=== PATIENT | male | born 1980 | race Caucasian/White ===

== ENCOUNTER → 2017-11-04 | Outpatient (CLI) | payer BC ==
--- NOTE | 2017-11-04 08:44 | Diagnostic Imaging Report ---
INDICATION: Numbness and tingling in the right arm. Time of exam: 8:43 AM Curvature and alignment of the thoracic spine is normal. Vertebral body heights are well-maintained. No acute compression fracture seen. There is mild generalized degenerative disc disease present. The pedicles and paraspinous line are intact. IMPRESSION: Mild thoracic spondylosis. No acute bony abnormality is detected. Dictated by: Dictated on workstation # [id number]
--- NOTE | 2017-11-04 09:06 | Diagnostic Imaging Report ---
INDICATION: Right arm pain and tingling. TIME OF EXAMINATION: 08:41 a.m. FINDINGS: Three views of the cervical spine are obtained. There is some straightening of the normal cervical lordotic curvature. There may be very slight anterolisthesis of C4 on C5. There is degenerative disc disease at the C4-C5 and C5-C6 levels with disc space narrowing and marginal spurring. All other levels are unremarkable. The prevertebral tissues are normal. Odontoid is intact. There are no fractures. IMPRESSION: Cervical spondylosis. No acute bony abnormality is detected. Dictated by: Dictated on workstation # [id number]
== END ==
LOC: RAD 07:44
PROVIDERS: ATTEND Family Medicine
DX: M47.812 Spondylosis without myelopathy or radiculopathy, cervical region (principal); M47.814 Spondylosis without myelopathy or radiculopathy, thoracic region
CPT/HCPCS: 72040; 72072

== ENCOUNTER 2019-01-06 10:45 | Inpatient (IN) | payer BC ==
[2019-01-06] VITALS (18 sets, daily range): BP systolic 101–142; BP diastolic 70–103
[~2019-01-06] VITALS: Ht 182.9 cm; Wt 114.3 kg
[2019-01-06] MEDS ORDERED: HEParin DRIP 25000 UNIT/500ML 500 ML IV SCH ×2 (10:59→15:47)
[2019-01-06] MEDS ORDERED: ASPIRIN 81 MG CHEW (CHILDREN'S ASA) PO ONE (11:00)
--- NOTE | 2019-01-06 11:00 | NUR ---
DR. BAIRD IN WITH PT AT THIS TIME.
[2019-01-06 11:13] LABS: BASOPHILS % (AUTO) 0 % (0-10); EOSINOPHILS # (AUTO) 0.3 10^3/uL (0.0-0.3); EOSINOPHILS % (AUTO) 3 % (0-10); HEMATOCRIT 49 % (40-54); HEMOGLOBIN 16.5 G/DL (13.3-17.7); LYMPHOCYTES # (AUTO) 2.8 X 10^3 (1.0-4.0); LYMPHOCYTES % (AUTO) 35 % (12-44); MEAN CORPUSCULAR HEMOGLOBIN 32 PG (25-34); MEAN CORPUSCULAR HGB CONC 34 G/DL (32-36); MEAN CORPUSCULAR VOLUME 95 FL (80-99); MEAN PLATELET VOLUME 9.6 FL (7.4-10.4); MONOCYTES # (AUTO) 0.8 X 10^3 (0.0-1.0); MONOCYTES % (AUTO) 10 % (0-12); NEUTROPHILS % (AUTO) 51 % (42-75); PLATELET COUNT 340 10^3/uL (130-400); RED CELL DISTRIBUTION WIDTH 13.1 % (10.0-14.5); WHITE BLOOD COUNT 7.9 10^3/uL (4.3-11.0)
[2019-01-06 11:20] LABS: INR 0.9 (0.8-1.4); PROTHROMBIN TIME PATIENT 12.5 SEC (12.2-14.7)
[2019-01-06 11:29] LABS: BUN/CREATININE RATIO 7; CARBON DIOXIDE 28 MMOL/L (21-32); CHLORIDE 103 MMOL/L (98-107); CREATININE SERUM 1.46 MG/DL (0.60-1.30); POTASSIUM 4.8 MMOL/L (3.6-5.0); SODIUM 140 MMOL/L (135-145)
[2019-01-06 11:30] LABS: ALANINE AMINOTRANSFERASE 25 U/L (0-55); ALBUMIN 4.7 GM/DL (3.2-4.5); ALKALINE PHOSPHATASE 59 U/L (40-136); BILIRUBIN,TOTAL 0.4 MG/DL (0.1-1.0); CALCIUM 9.8 MG/DL (8.5-10.1); CREATINE KINASE 160 U/L (30-200); GFR ESTIMATED 54; GLUCOSE 122 MG/DL (70-105); MAGNESIUM 2.4 MG/DL (1.8-2.4); TOTAL PROTEIN 7.6 GM/DL (6.4-8.2)
[2019-01-06] MEDS ORDERED: meTOprolol 5 MG/5 ML (LOPRESSOR) VIAL IV ONE (11:30)
--- NOTE | 2019-01-06 11:37 | Diagnostic Imaging Report ---
INDICATION: Heart palpitations. Time of exam 11:28 AM No prior studies are available for comparison. The heart size is normal. The pulmonary vascularity is unremarkable. The lungs are clear. No infiltrate, effusion or pneumothorax is detected. Impression: No acute cardiopulmonary process is detected. Dictated by: Dictated on workstation # [id number]
--- NOTE | 2019-01-06 11:43 | Consultation-Cardiology ---
HPI-Cardiology Cardiology Consultation Date of Consultation 01/06/19 Date of Admission Time Seen by Provider: 11:32 Indication: atrial flutter HPI 38 years old gentleman with history of hypertension, anxiety. Was in his usual state of health until yesterday when he started to have palpitation, felt his heart racing, denied any chest pain or shortness of breath. Thought it was r elated to anxiety, took some Xanax without significant relief, went to bed and when he woke up this morning he was still having the palpitation. Did not feel his heart racing but felt fluttery sensation in his chest. Went to Dr. Corrales's office and he was sent to the emergency room and found to be in atrial flutter with controlled rate. Patient is maintained on beta blockers as an outpatient. Home Medications & Allergies Allergies: Coded Allergies: No Known Drug Allergies (Unverified , 11/20/14) Home Medication List Reviewed: Yes VJU-Hhpxqe-Vrudaj Hx Patient Social History Marital Status: Employed/Student: employed Smoking Status: Never a Smoker Recent Foreign Travel: No Past Medical History Discussed below Family Medical History Family Medical Hx Father has history of esophageal cancer Grandmother has history of heart disease Review of Systems-General Review of Systems Constitutional: no symptoms reported, see HPI EENTM: see HPI, no symptoms reported Respiratory: see HPI; No cough, No dyspnea on exertion, No hemoptysis, No orthopnea, No phlegm, No short of breath, No stridor, No wheezing, No other Cardiovascular: see HPI; No chest pain, No edema, No Hx of Intervention; palpitations; No syncope, No vascular heart diseas, No other Gastrointestinal: no symptoms reported, see HPI Genitourinary: no symptoms reported, see HPI Musculoskeletal: no symptoms reported, see HPI Skin: no symptoms reported, see HPI Psychiatric/Neurological: No Symptoms Reported, See HPI Reviewed Test Results Reviewed Test Results Lab Laboratory Tests Test 01/06/19 11:00 Range/Units White Blood Count 7.9 4.3-11.0 10^3/uL Red Blood Count 5.15 4.35-5.85 10^6/uL Hemoglobin 16.5 13.3-17.7 G/DL Hematocrit 49 40-54 % Mean Corpuscular Volume 95 80-99 FL Mean Corpuscular Hemoglobin 32 25-34 PG Mean Corpuscular Hemoglobin Concent 34 32-36 G/DL Red Cell Distribution Width 13.1 10.0-14.5 % Platelet Count 340 130-400 10^3/uL Mean Platelet Volume 9.6 7.4-10.4 FL Neutrophils (%) (Auto) 51 42-75 % Lymphocytes (%) (Auto) 35 12-44 % Monocytes (%) (Auto) 10 0-12 % Eosinophils (%) (Auto) 3 0-10 % Basophils (%) (Auto) 0 0-10 % Neutrophils # (Auto) 4.0 1.8-7.8 X 10^3 Lymphocytes # (Auto) 2.8 1.0-4.0 X 10^3 Monocytes # (Auto) 0.8 0.0-1.0 X 10^3 Eosinophils # (Auto) 0.3 0.0-0.3 10^3/uL Basophils # (Auto) 0.0 0.0-0.1 10^3/uL Prothrombin Time 12.5 12.2-14.7 SEC INR Comment 0.9 0.8-1.4 Activated Partial Thromboplast Time 29 24-35 SEC Sodium Level 140 135-145 MMOL/L Potassium Level 4.8 3.6-5.0 MMOL/L Chloride Level 103 98-107 MMOL/L Carbon Dioxide Level 28 21-32 MMOL/L Anion Gap 9 5-14 MMOL/L Blood Urea Nitrogen 10 7-18 MG/DL Creatinine 1.46 H 0.60-1.30 MG/DL Estimat Glomerular Filtration Rate 54 BUN/Creatinine Ratio 7 Glucose Level 122 H 70-105 MG/DL Calcium Level 9.8 8.5-10.1 MG/DL Corrected Calcium 8.5-10.1 MG/DL Magnesium Level 2.4 1.8-2.4 MG/DL Total Bilirubin 0.4 0.1-1.0 MG/DL Aspartate Amino Transf (AST/SGOT) 17 5-34 U/L Alanine Aminotransferase (ALT/SGPT) 25 0-55 U/L Alkaline Phosphatase 59 40-136 U/L Total Creatine Kinase 160 30-200 U/L Total Protein 7.6 6.4-8.2 GM/DL Albumin 4.7 H 3.2-4.5 GM/DL Physical Exam Physical Exam Vital Signs Capillary Refill : Height, Weight, BMI Height: '" Weight: lbs. oz. kg; BMI Method: General Appearance: No Apparent Distress, WD/WN Eyes: Bilateral Eye Normal Inspection, Bilateral Eye PERRL, Bilateral Eye EOMI HEENT: PERRL/EOMI, TMs Normal, Normal ENT Inspection, Pharynx Normal, Moist Mucous Membranes Neck: Full Range of Motion, Normal Inspection, Non Tender, Supple, Carotid Bruit Respiratory: Chest Non Tender, Normal Breath Sounds, No Accessory Muscle Use, No Respiratory Distress Cardiovascular: Regular Rate, Rhythm, No Edema, No Gallop, No JVD, No Murmur, Normal Peripheral Pulses Gastrointestinal: Normal Bowel Sounds, No Organomegaly, No Pulsatile Mass, Non Tender, Soft Back: Normal Inspection, No CVA Tenderness, No Vertebral Tenderness Extremity: Normal Capillary Refill, Normal Inspection, Normal Range of Motion, Non Tender, No Calf Tenderness, No Pedal Edema Neurologic/Psychiatric: Alert, Oriented x3, No Motor/Sensory Deficits, Normal Mood/Affect Skin: Normal Color, Warm/Dry Lymphatic: No Adenopathy A/P-Cardiology Admission Diagnosis Palpitation Paroxysmal atrial flutter Hypertension Anxiety Assessment/Plan Palpitation, secondary to atrial flutter. Rate is controlled. Paroxysmal atrial flutter, subacute onset, probably started yesterday, rate is controlled in the 80s, I will start him on heparin and aspirin in addition I will give him one dose of IV Lopressor and continue on propranolol for now and monitor. Evaluate 2-D echocardiogram, planning to proceed with MILAGRO and electrical cardioversion in the morning if he did not convert on his own. [id number] score of 1, yearly risk of stroke without oral anticoagulation is 1.3 percent, patient was started on heparin drip and aspirin, planning to initiate oral anticoagulation EKG changes with ST elevation in V3 V4 V5, no reciprocal changes, no acute chest pain. I will continue monitoring cardiac enzymes. Continue on aspirin and heparin for now Hypertension, maintained on propranolol and Olmisartan/hydrochlorothiazide as an outpatient, I will continue with beta blockers for now and monitor tolerance and response. 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 Continue with weight loss and exercise Patient is maintained on testosterone as an outpatient Family history of esophageal cancer Family history of heart disease NISA BAIRD MD Jan 06, 2019 11:43
[2019-01-06] MEDS ORDERED: ASPIRIN E.C. 325 MG (ECOTRIN) TABLET PO NR (11:45)
[2019-01-06 11:49] LABS: CREATINE KINASE MB 2.4 NG/ML (<6.6); TSH (THYROID ANALYZER) 1.81 UIU/ML (0.35-4.94)
--- NOTE | 2019-01-06 12:20 | ED Cardiac General ---
History of Present Illness General Chief Complaint: Cardiac/General Problems Stated Complaint: NEW ONSET ATRIAL FLUTTER;HTN Nursing Triage Note: PT TO RM [address] VEGA OFFICE WITH CC OF PALPATATIONS THAT STARTED YESTERDAY. PT IN A FLUTTER. Source: patient History of Present Illness Date Seen by Provider: Jan 06, 2019 Time Seen by Provider: 10:51 Initial Comments PT ARRIVES VIA POV FROM DR. 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 ROSAS'S OFFICE, EKG WAS DONE WHICH SHOWS ATRIAL FLUTTER STATES HE HAS HAD THIS SEVERAL TIMES IN THE PAST, BUT IT WENT AWAY AFTER A SHORT PERIOD OF TIME, HAS NEVER GONE ON FOR THIS LONG. NEVER SOUGHT CARE "THOUGHT I WAS JUST ANXIOUS" NO CHEST PAIN NO SHORTNESS OF BREATH NO SWEATS NO DIZZINESS OR SYNCOPE NO SWELLING IN LEGS/ FEET OR PAIN IN CALVES NO NAUSEA/VOMITING NO FEVER OR RECENT ILLNESS NO RECENT TRAVEL/PROLONGED SITTING, ETC. HAS HISTORY OF HTN, AND TAKES MEDICATION FOR IT. OTHERWISE DOES NOT HAVE ANY PRIOR CARDIAC HISTORY PCP: DR. ROSAS Allergies and Home Medications Allergies Coded Allergies: No Known Drug Allergies (Unverified , 11/20/14) Patient Home Medication List Home Medication List Reviewed: Yes Review of Systems Review of Systems Constitutional: no symptoms reported; No dizziness, No malaise, No weakness EENTM: No Symptoms Reported Respiratory: No Symptoms Reported; Denies Cough, Denies Orthopnea, Denies Shortness of Air Cardiovascular: See HPI; Denies Chest Pain, Denies Edema; Irregular Heart Rate; Denies Lightheadedness; Palpitations; Denies Syncope Gastrointestinal: No Symptoms Reported; Denies Nausea, Denies Vomiting Genitourinary: No Symptoms Reported Musculoskeletal: no symptoms reported; No back pain Skin: no symptoms reported Psychiatric/Neurological: No Symptoms Reported; Denies Headache, Denies Numbness, Denies Paresthesia, Denies Seizure, Denies Weakness Endocrine: No Symptoms Reported Hematologic/Lymphatic: No Symptoms Reported Past Anwcrhh-Gonzns-Akgyof Hx Patient Social History Alcohol Use: Denies Use Recreational Drug Use: No Smoking Status: Never a Smoker Recent Foreign Travel: No Contact w/Someone Who Travel: No Recent Infectious Disease Expo: No Recent Hopitalizations: No Seasonal Allergies Seasonal Allergies: No Past Medical History Surgeries: No Respiratory: No Cardiac: Yes Hypertension Neurological: No Genitourinary: No Gastrointestinal: No Musculoskeletal: Yes (CLOSED REDUCTION OF RIGHT SHOULDER DISLOCATION) Endocrine: No HEENT: No Cancer: No Psychosocial: No Integumentary: No Physical Exam Vital Signs Vital Signs - First Documented 01/06/19 10:57 Temp 98.5 Pulse 89 Resp 20 B/P (MAP) 133/101 (112) Pulse Ox 100 O2 Delivery Room Air Capillary Refill : Less Than 3 Seconds Height, Weight, BMI Height: 6'0" Weight: 252lbs. oz. 114.891489ad; BMI Method:Stated General Appearance: No Apparent Distress, WD/WN; No Anxious HEENT: PERRL/EOMI Neck: Full Range of Motion, Normal Inspection, Non Tender, Supple; No Carotid Bruit, No JVD Respiratory: Normal Breath Sounds, No Accessory Muscle Use, No Respiratory Distress Cardiovascular: No Edema, No JVD, No Murmur, Normal Peripheral Pulses, Irregularly Irregular; No Tachycardia Gastrointestinal: Normal Bowel Sounds, No Organomegaly, No Pulsatile Mass, Non Tender, Soft Extremity: Normal Capillary Refill, Normal Inspection, Normal Range of Motion, Non Tender, No Calf Tenderness, No Pedal Edema Neurologic/Psychiatric: Alert, Oriented x3, No Motor/Sensory Deficits, Normal Mood/Affect, chemist assistant II-XII Norm as Tested Skin: Normal Color, Warm/Dry Progress/Results/Core Measures Results/Orders Lab Results Laboratory Tests Test 01/06/19 11:00 Range/Units White Blood Count 7.9 4.3-11.0 10^3/uL Red Blood Count 5.15 4.35-5.85 10^6/uL Hemoglobin 16.5 13.3-17.7 G/DL Hematocrit 49 40-54 % Mean Corpuscular Volume 95 80-99 FL Mean Corpuscular Hemoglobin 32 25-34 PG Mean Corpuscular Hemoglobin Concent 34 32-36 G/DL Red Cell Distribution Width 13.1 10.0-14.5 % Platelet Count 340 130-400 10^3/uL Mean Platelet Volume 9.6 7.4-10.4 FL Neutrophils (%) (Auto) 51 42-75 % Lymphocytes (%) (Auto) 35 12-44 % Monocytes (%) (Auto) 10 0-12 % Eosinophils (%) (Auto) 3 0-10 % Basophils (%) (Auto) 0 0-10 % Neutrophils # (Auto) 4.0 1.8-7.8 X 10^3 Lymphocytes # (Auto) 2.8 1.0-4.0 X 10^3 Monocytes # (Auto) 0.8 0.0-1.0 X 10^3 Eosinophils # (Auto) 0.3 0.0-0.3 10^3/uL Basophils # (Auto) 0.0 0.0-0.1 10^3/uL Prothrombin Time 12.5 12.2-14.7 SEC INR Comment 0.9 0.8-1.4 Activated Partial Thromboplast Time 29 24-35 SEC Sodium Level 140 135-145 MMOL/L Potassium Level 4.8 3.6-5.0 MMOL/L Chloride Level 103 98-107 MMOL/L Carbon Dioxide Level 28 21-32 MMOL/L Anion Gap 9 5-14 MMOL/L Blood Urea Nitrogen 10 7-18 MG/DL Creatinine 1.46 H 0.60-1.30 MG/DL Estimat Glomerular Filtration Rate 54 BUN/Creatinine Ratio 7 Glucose Level 122 H 70-105 MG/DL Calcium Level 9.8 8.5-10.1 MG/DL Corrected Calcium 8.5-10.1 MG/DL Magnesium Level 2.4 1.8-2.4 MG/DL Total Bilirubin 0.4 0.1-1.0 MG/DL Aspartate Amino Transf (AST/SGOT) 17 5-34 U/L Alanine Aminotransferase (ALT/SGPT) 25 0-55 U/L Alkaline Phosphatase 59 40-136 U/L Total Creatine Kinase 160 30-200 U/L Creatine Kinase MB 2.4 <6.6 NG/ML Myoglobin 41.9 10.0-92.0 NG/ML Troponin I < 0.028 <0.028 NG/ML B-Type Natriuretic Peptide 199.0 H <100.0 PG/ML Total Protein 7.6 6.4-8.2 GM/DL Albumin 4.7 H 3.2-4.5 GM/DL TSH [place] Testing 1.81 0.35-4.94 UIU/ML My Orders Orders - DUNIA PATEL DO Ekg Tracing (01/06/19 10:47) Ed Iv/Invasive Line Start (01/06/19 10:59) Monitor-Rhythm Ecg Trace Only (01/06/19 10:59) I-Stat Bedside Testing (01/06/19 10:59) Chest 1 View, Ap/Pa Only (01/06/19 10:59) BNP (01/06/19 10:59) Cbc With Automated Diff (01/06/19 10:59) Comprehensive Metabolic Panel (01/06/19 10:59) Creatine Kinase (01/06/19 10:59) Creatine Kinase Mb (01/06/19 10:59) Drug Screen Stat (Urine) (01/06/19 10:59) Magnesium (01/06/19 10:59) Protime With Inr (01/06/19 10:59) Partial Thromboplastin Time (01/06/19 10:59) Thyroid Analyzer (01/06/19 10:59) Ua Culture If Indicated (01/06/19 10:59) Myoglobin Serum (01/06/19 10:59) Troponin I (01/06/19 10:59) Heparin Injection (Heparin Injection) (01/06/19 11:00) Aspirin Chewable Tablet (Baby Aspirin Ch (01/06/19 11:00) Heparin Drip 73183 Unit/500ml (Heparin (01/06/19 10:59) Initiate Heparin Full Protocol (01/06/19 10:59) Metoprolol Tartrate Injection (Lopressor (01/06/19 11:30) Medications Given in ED Current Medications Medications Dose Ordered Sig/Vince Route Start Time Stop Time Status Last Admin Dose Admin Aspirin 324 mg ONCE ONCE PO 01/06/19 11:00 01/06/19 11:04 DC 01/06/19 11:19 324 MG Heparin Sodium (Porcine) 5,000 units ONCE ONCE IV 01/06/19 11:00 01/06/19 11:04 DC 01/06/19 11:19 5,000 UNITS Metoprolol Tartrate 5 mg ONCE ONCE IV 01/06/19 11:30 01/06/19 11:31 DC 01/06/19 11:39 5 MG Vital Signs/I&O 01/06/19 10:57 Temp 98.5 Pulse 89 Resp 20 B/P (MAP) 133/101 (112) Pulse Ox 100 O2 Delivery Room Air Blood Pressure Mean: 112 Progress Progress Note : Progress Note UNEVENTFUL ER STAY Initial ECG Impression Date: Jan 06, 2019 Initial ECG Impression Time: 10:50 Initial ECG Rate: 80 Initial ECG Rhythm: A Fib/Flutter (A FLUTTER) Initial ECG Impression: Nonspecific Changes Initial ECG Comparisson: No Previous ECG Available Diagnostic Imaging Comments CXR--NO ACUTE PROCESS, PER RADIOLOGIST REPORT Reviewed: Reviewed by Me Departure Communication (Admissions) 1056--SPOKE WITH DR. BAIRD, WILL BE IN TO SEE PT 1102--DR. BAIRD HERE, CARE TURNED OVER TO HIM. HE ADVISES TO ADMIT TO DR. ROSAS, HE WILL SEE IN CONSULT 1120--ATTEMPTING TO CONTACT DR. ROSAS, MESSAGE ON CELL. 1122--CALLED DR. ROSAS'S OFFICE, SHE IS OUT OF TOWN. 1122--CALLED DR. GOMES, HE IS NOT [employer]TONH[employer]. 1123--CALLED DR. LEWIS, MESSAGE ON CELL 1124--ATTEMPTING TO CONTACT DR. CHICAS 1135--SPOKE WITH DR. MAHMOOD, COVERING FOR DR. ROSAS. SHE ADVISES TO ADMIT TO DR. BAIRD. SHE WILL CALL HIM AND CALL BACK 1137--DR. GUERRA HAS DISCUSSED WITH DR. BAIRD, AND PT WILL ADMITTED TO HIS SERVICE. DR. BAIRD CONFIRMS THIS Impression Primary Impression: NEW DX OF ATRIAL FLUTTER Additional Impression: HTN (hypertension) Disposition: ADMITTED INPATIENT Condition: Stable Admissions Decision to Admit Reason: Admit from ER (General) Decision to Admit/Date: Jan 06, 2019 Time/Decision to Admit Time: 11:00 Departure-Patient Inst. Referrals: SJ ROSAS DO (PCP/Family) Primary Care Physician DUNIA PATEL DO Jan 06, 2019 12:20
--- OUTSIDE RECORDS SUMMARY | 2019-01-06 12:22 | XMS REPORT | Continuity of Care Document ---
Author Organization Unknown Address Unknown Phone Unavailable Allergies Active Description Code Type Severity Reaction Onset Reported/Identified Relationship to Patient Clinical Status Yes No Known Drug Allergies [id number] Drug Allergy Unknown N/A 11/20/2014 Medications There is no data. Problems Date Dx Coded Attending Type Code Diagnosis Diagnosed By 11/05/2014 MERVIN PENNINGTON, BRIAN R Ot 724.2 11/05/2014 MERVIN PENNINGTON, BRIAN R Ot V57.1 11/21/2014 BRIAN JEFFRIES MD R Ot 724.2 11/21/2014 MERVIN PENNINGTON, BRIAN R Ot V57.1 11/30/2014 BRIAN JEFFRIES MD R Ot 724.2 11/30/2014 MERVIN PENNINGTON, BRIAN R Ot V57.1 12/21/2014 MERVIN PENNINGTON, BRIAN R Ot 722.93 12/24/2014 MERVIN PENNINGTON, BRIAN R Ot 724.2 LUMBAGO 12/24/2014 MERVIN PENNINGTON, BRIAN R Ot V57.1 PHYSICAL THERAPY NEC 01/07/2015 MERVIN PENNINGTON, BRIAN R Ot 722.93 05/07/2015 BRIAN JEFFRIES MD R Ot 722.93 05/23/2015 BRIAN JEFFRIES MD R Ot 722.93 06/12/2015 BRIAN JEFFRIES MD R Ot 722.93 10/08/2016 MERVIN PENNINGTON, BRIAN R Ot 722.93 DISC DIS NEC/NOS-LUMBAR 10/09/2016 BRIAN JEFFRIES MD R Ot 722.93 DISC DIS NEC/NOS-LUMBAR 11/05/2017 SJ ROSAS DO S Ot M47.812 SPONDYLOSIS W/O MYELOPATHY OR RADICULOPA 11/05/2017 SJ ROSAS DO S Ot M47.814 SPONDYLOSIS W/O MYELOPATHY OR RADICULOPA 11/10/2017 SJ ROSAS DO Ot M47.812 SPONDYLOSIS W/O MYELOPATHY OR RADICULOPA 11/10/2017 [facility] DO, SJ S Ot M47.814 SPONDYLOSIS W/O MYELOPATHY OR RADICULOPA [facility] M47.812 SPONDYLOSIS W/O MYELOPATHY OR RADICULOPA 11/18/2017 BRODYND DO, SJ S Ot M47.814 SPONDYLOSIS W/O MYELOPATHY OR RADICULOPA 10/28/2018 [facility], SJ S Ot M47.812 SPONDYLOSIS W/O MYELOPATHY OR RADICULOPA 10/28/2018 BRODYND DO, SJ S Ot M47.814 SPONDYLOSIS W/O MYELOPATHY OR RADICULOPA 11/01/[facility] S Ot M47.812 SPONDYLOSIS W/O MYELOPATHY OR RADICULOPA 11/01/2018 B[facility] DO, SJ S Ot M47.814 SPONDYLOSIS W/O MYELOPATHY OR RADICULOPA Procedures There is no data. Results Test Result Range Complete blood count (CBC) with automated white blood cell (WBC) differential - 01/06/19 11:00 Blood leukocytes automated count (number/volume) 7.9 10*3/uL 4.3-11.0 Blood erythrocytes automated count (number/volume) 5.15 10*6/uL 4.35-5.85 Venous blood hemoglobin measurement (mass/volume) 16.5 g/dL 13.3-17.7 Blood hematocrit (volume fraction) 49 % 40-54 Automated erythrocyte mean corpuscular volume 95 [foz_us] 80-99 Automated erythrocyte mean corpuscular hemoglobin (mass per erythrocyte) 32 pg 25-34 Automated erythrocyte mean corpuscular hemoglobin concentration measurement (mass/volume) 34 g/dL 32-36 Automated erythrocyte distribution width ratio 13.1 % 10.0- 14.5 Automated blood platelet count (count/volume) 340 10*3/uL 130-400 Automated blood platelet mean volume measurement 9.6 [foz_us] 7.4-10.4 Automated blood neutrophils/100 leukocytes 51 % 42-75 Automated blood lymphocytes/100 leukocytes 35 % 12-44 Blood monocytes/100 leukocytes 10 % 0-12 Automated blood eosinophils/100 leukocytes 3 % 0-10 Automated blood basophils/100 leukocytes 0 % 0-10 Blood neutrophils automated count (number/volume) 4.0 10*3 1.8-7.8 Blood lymphocytes automated count (number/volume) 2.8 10*3 1.0-4.0 Blood monocytes automated count (number/volume) 0.8 10*3 0.0- 1.0 Automated eosinophil count 0.3 10*3/uL 0.0-0.3 Automated blood basophil count (count/volume) 0.0 10*3/uL 0.0-0.1 PT panel in platelet poor plasma by coagulation assay - 01/06/19 11:00 Prothrombin time (PT) in platelet poor plasma by coagulation assay 12.5 s 12.2-14.7 INR in platelet poor plasma or blood by coagulation assay 0.9 0.8-1.4 Activated partial thromboplastin time (aPTT) in platelet poor plasma bycoagulation assay - 01/06/19 11:00 Activated partial thromboplastin time (aPTT) in platelet poor plasma bycoagulation assay 29 s 24-35 Comprehensive metabolic panel - 01/06/19 11:00 Serum or plasma sodium measurement (moles/volume) 140 mmol/L 135-145 Serum or plasma potassium measurement (moles/volume) 4.8 mmol/L 3.6-5.0 Serum or plasma chloride measurement (moles/volume) 103 mmol/L 98-107 Carbon dioxide 28 mmol/L 21-32 Serum or plasma anion gap determination (moles/volume) 9 mmol/L 5-14 Serum or plasma urea nitrogen measurement (mass/volume) 10 mg/dL 7-18 Serum or plasma creatinine measurement (mass/volume) 1.46 mg/dL 0.60-1.30 Serum or plasma urea nitrogen/creatinine mass ratio 7 NRG Serum or plasma creatinine measurement with calculation of estimated glomerular filtration rate 54 NRG Serum or plasma glucose measurement (mass/volume) 122 mg/dL 70-105 Serum or plasma calcium measurement (mass/volume) 9.8 mg/dL 8.5-10.1 Serum or plasma total bilirubin measurement (mass/volume) 0.4 mg/dL 0.1-1.0 Serum or plasma alkaline phosphatase measurement (enzymatic activity/volume) 59 U/L 40-136 Serum or plasma aspartate aminotransferase measurement (enzymatic activity/volume) 17 U/L 5-34 Serum or plasma alanine aminotransferase measurement (enzymatic activity/volume) 25 U/L 0-55 Serum or plasma protein measurement (mass/volume) 7.6 g/dL 6.4-8.2 Serum or plasma albumin measurement (mass/volume) 4.7 g/dL 3.2-4.5 Magnesium - 01/06/19 11:00 Magnesium 2.4 mg/dL 1.8-2.4 Serum or plasma creatine kinase measurement (enzymatic activity/volume) - 01/06/19 11:00 Serum or plasma creatine kinase measurement (enzymatic activity/volume) 160 U/L 30-200 Serum or plasma lithium measurement (moles/volume) - 01/06/19 11:00 BNP PT 199.0 pg/mL <100.0 Serum or plasma creatine kinase MB measurement (enzymatic activity/volume) - 01/06/19 11:00 Serum or plasma creatine kinase MB measurement (enzymatic activity/volume) 2.4 ng/mL <6.6 Serum or plasma troponin i.cardiac measurement (mass/volume) - 01/06/19 11:00 Serum or plasma troponin i.cardiac measurement (mass/volume) < ng/mL <0.028 Myoglobin, serum - 01/06/19 11:00 Myoglobin, serum 41.9 ng/mL 10.0-92.0 Serum or plasma thyrotropin measurement by detection limit <=0.05 miu/l (units/volume) - 01/06/19 11:00 Serum or plasma thyrotropin measurement by detection limit <=0.05 miu/l (units/volume) 1.81 u[iU]/mL 0.35-4.94 Encounters ACCT No. Visit Date/Time Discharge Status Pt. Type Provider Facility Loc./Unit Complaint [id number] 06/11/2016 09:46:16 06/11/2016 23:59:59 CLS Outpatient 06/201701/04/2019 13:00:57 ACT Outpatient [id number] 11/04/2017 07:44:00 11/04/2017 23:59:59 CLS Outpatient SJ ROSAS DO [facility] RAD NECK AND BACK PAIN [id number] 11/06/2014 08:02:00 12/24/2014 10:59:00 DIS Outpatient BRIAN JEFFRIES MD [facility] REHAB R LOW BACK PAIN [id number] 11/20/2014 08:47:00 11/20/2014 23:59:59 CLS Outpatient BRIAN JEFFRIES MD [facility] RAD TOTAL NUMBNESS DECREASING ERECTION [id number] 01/06/2019 11:14:00 Document Registration
[2019-01-06 13:12] LABS: BILIRUBIN,URINE NEGATIVE (NEGATIVE); CLARITY,URINE CLEAR; COLOR,URINE YELLOW; GLUCOSE, URINE (UA) NEGATIVE (NEGATIVE); KETONES,URINE NEGATIVE (NEGATIVE); LEUKOCYTE ESTERASE ,URINE NEGATIVE (NEGATIVE); NITRITE,URINE NEGATIVE (NEGATIVE); PH,URINE 7 (5-9); PROTEIN,URINE NEGATIVE (NEGATIVE); UROBILINOGEN,URINE NORMAL (NORMAL)
[2019-01-06 13:20] LABS: BACTERIA,URINE NEGATIVE /HPF; RBC,URINE RARE /HPF; SQUAMOUS EPITHELIAL CELL,UR RARE /HPF
[2019-01-06 13:25] LABS: AMPHETAMINE SCREEN, URINE NEGATIVE (NEGATIVE); BARBITURATE SCREEN URINE NEGATIVE (NEGATIVE); BENZODIAZEPINES SCREEN URINE POSITIVE (NEGATIVE); CANNABINOID SCREEN, URINE NEGATIVE (NEGATIVE); COCAINE SCREEN URINE NEGATIVE (NEGATIVE); METHADONE STAT NEGATIVE (NEGATIVE); METHAMPHETAMINE SCREEN URINE S NEGATIVE (NEGATIVE); OPIATE SCREEN URINE NEGATIVE (NEGATIVE); OXYCODONE STAT NEGATIVE (NEGATIVE); PROPOXYPHENE STAT NEGATIVE (NEGATIVE); TRICYCLIC ANTIDEPRESSANTS SCRE NEGATIVE (NEGATIVE)
--- NOTE | 2019-01-06 13:42 | NUR ---
pt admitted to cu10 w/ heparin gtt infusing at 20ml/hr --drip started at 20ml/hr per dr sullivan. will recheck ptt at 1530.
--- NOTE | 2019-01-06 13:42 | NUR ---
ALAINA ESCOBEDO admitted to room CU10-1, with an admitting diagnosis of new onset atrial flutter, HTN, on 01/06/19 from [place] via cart, accompanied by mother and sister, and OSORIO Ferraro RN.ALAINA ESCOBEDO introduced to surroundings, call light, bed controls, phone, TV, temperature control, lights, meal times, smoking policy, visitor policy, side rail policy, bathrooms and showers. Patient Rights given to patient in the handbook. ALAINA ESCOBEDO verbalizes understanding that [facility] is not responsible for the loss or damage to any personal effects or valuables that are kept in the patients posession during their hospitalization. The following Patient Care Plans were discussed with the pt and family: Discharge Planning, anxiety, knowledge deficit, and ineffective breathing patter. ALAINA ESCOBEDO verbalizes understanding of Interdisciplinary Patient Education. Patient and/or family were informed about the Rapid Response Team and its purpose.
[2019-01-06] MEDS ORDERED: BUSP10TA95 PO (13:54)
[2019-01-06] MEDS ORDERED: PROP40TA5 PO (13:54)
[2019-01-06] MEDS ORDERED: BUPR300T51 PO (13:54)
[2019-01-06] MEDS ORDERED: PANT40TA3 PO (13:54)
[2019-01-06] MEDS ORDERED: NALT50TA PO (13:54)
[2019-01-06] MEDS ORDERED: OLME1TAB44 PO (13:54)
[2019-01-06] MEDS ORDERED: CATHETER FLUSH 10 ML SYR IV PRN (14:15)
[2019-01-06] MEDS ORDERED: KETO120S2 TOP (14:20)
[2019-01-06] MEDS ORDERED: TEST200V22 INJ (14:20)
[2019-01-06] MEDS: HEParin 1000 UNIT/ML (10ML VIAL) FOR BOLUS IV SCH (16:03)
[2019-01-06] MEDS ORDERED: meTOprolol 5 MG/5 ML (LOPRESSOR) VIAL IV NR (20:30)
[2019-01-06] MEDS ORDERED: NON-FORMULARY MEDICATION 1 EA EA (Buspirone HCl 10 MG) PO SCH (21:00)
[2019-01-06] MEDS ORDERED: NON-FORMULARY MEDICATION 1 EA EA (Propranolol HCl 40 MG) PO SCH (21:00)
[2019-01-06] MEDS ORDERED: busPIRone 10 MG (BUSPAR) TAB PO SCH (21:00)
[2019-01-06] MEDS: CATHETER FLUSH 10 ML SYR IV SCH (22:04)
[2019-01-07] VITALS (11 sets, daily range): BP systolic 99–120; BP diastolic 71–85
[2019-01-07] MEDS: CATHETER FLUSH 10 ML SYR IV SCH (02:38)
[2019-01-07 04:09] LABS: BASOPHILS % (AUTO) 0 % (0-10); EOSINOPHILS # (AUTO) 0.3 10^3/uL (0.0-0.3); EOSINOPHILS % (AUTO) 3 % (0-10); HEMATOCRIT 50 % (40-54); HEMOGLOBIN 17.1 G/DL (13.3-17.7); LYMPHOCYTES # (AUTO) 4.4 X 10^3 (1.0-4.0); LYMPHOCYTES % (AUTO) 39 % (12-44); MEAN CORPUSCULAR HEMOGLOBIN 32 PG (25-34); MEAN CORPUSCULAR HGB CONC 34 G/DL (32-36); MEAN CORPUSCULAR VOLUME 94 FL (80-99); MEAN PLATELET VOLUME 9.7 FL (7.4-10.4); MONOCYTES # (AUTO) 0.9 X 10^3 (0.0-1.0); MONOCYTES % (AUTO) 8 % (0-12); NEUTROPHILS # (AUTO) 5.6 X 10^3 (1.8-7.8); NEUTROPHILS % (AUTO) 50 % (42-75); PLATELET COUNT 298 10^3/uL (130-400); RED CELL DISTRIBUTION WIDTH 13.1 % (10.0-14.5); WHITE BLOOD COUNT 11.2 10^3/uL (4.3-11.0)
[2019-01-07 04:30] LABS: CALCIUM 9.9 MG/DL (8.5-10.1); CREATININE SERUM 1.33 MG/DL (0.60-1.30); MAGNESIUM 2.4 MG/DL (1.8-2.4); PHOSPHORUS 4.1 MG/DL (2.3-4.7); POTASSIUM 3.8 MMOL/L (3.6-5.0)
[2019-01-07 04:32] LABS: CHOLESTEROL 198 MG/DL (< 200); HDL CHOLESTEROL 41 MG/DL (40-60); TRIGLYCERIDES 186 MG/DL (<150); VLDL CHOLESTEROL 37 MG/DL (5-40)
[2019-01-07] MEDS: HEParin 1000 UNIT/ML (10ML VIAL) FOR BOLUS IV SCH (05:21)
[2019-01-07] MEDS ORDERED: buPROPion SR 150 MG (WELLBUTRIN SR) TAB PO SCH (07:00)
[2019-01-07] MEDS ORDERED: NON-FORMULARY MEDICATION 1 EA EA (Olmesartan/Hydrochlorothiazide (Olmesartan-Hctz 40-25 mg PO SCH (09:00)
[2019-01-07] MEDS ORDERED: HYDROCHLOROTHIAZIDE 25 MG (HCTZ) TAB PO SCH (09:00)
[2019-01-07] MEDS ORDERED: PANTOPRAZOLE 40 MG (PROTONIX) TAB PO SCH ×2 (09:00)
[2019-01-07] MEDS ORDERED: VALSARTAN 160 MG (DIOVAN) TABLET PO SCH (09:00)
[2019-01-07] MEDS ORDERED: ASPIRIN E.C. 81 MG (ECOTRIN) TAB PO SCH (09:00)
[2019-01-07] MEDS ORDERED: NON-FORMULARY MEDICATION 1 EA EA (Bupropion HCl (Bupropion Xl) 300 MG) PO SCH (09:00)
[2019-01-07] MEDS ORDERED: NALTREXONE HCL PO SCH (09:00)
--- NOTE | 2019-01-07 09:39 | Cardiology Progress Note ---
Subjective Date Seen by Provider: Jan 07, 2019 Time Seen by Provider: 09:37 Subjective/Events-last exam patient converted early this morning to sinus rhythm, then down in bed, still anxious, denied any chest pain. Review of Systems General: No Chills, No Night Sweats, No Fatigue, No Malaise, No Appetite, No Other HEENT: No Head Aches, No Visual Changes, No Eye Pain, No Ear Pain, No Dysphasia, No Sinus Congestion, No Post Nasal Drip, No Sore Throat, No Other Pulmonary: No Dyspnea, No Cough, No Pleuritic Chest Pain, No Other Cardiovascular: No: Chest Pain, Palpitations, Orthopnea, Paroxysmal Noc. Dyspnea, Edema, Lt Headedness, Other Objective-Cardiology Exam Last Set of Vital Signs Vital Signs 01/07/19 06:00 Pulse 81 Resp 12 B/P (MAP) 114/85 (95) Pulse Ox 98 O2 Delivery Room Air Capillary Refill : Less Than 3 Seconds I&O Intake and Output 01/07/19 00:00 Intake Total 550 ml Output Total 1000 ml Balance -450 ml Intake Oral 550 ml Output Urine Total 1000 ml Daily Weight Change No General: Alert, Oriented X3, Cooperative HEENT: Atraumatic, PERRLA Neck: Supple, No JVD, No Thyromegaly Lungs: Clear to Auscultation, Normal Air Movement Heart: Regular Rate, Normal S1, Normal S2, No Murmurs Abdomen: Normal Bowel Sounds, Soft, No Tenderness, No Hepatosplenomegaly, No Masses Extremities: No Clubbing, No Cyanosis, No Edema, Normal Pulses, No Tenderness/Swelling Skin: No Rashes, No Breakdown, No Significant Lesion Neuro: Normal Gait, Normal Speech, Strength at 5/5 X4 Ext, Normal Tone, Sensation Intact Psych/Mental Status: Mental Status NL, Mood NL Results Lab Laboratory Tests 01/06/19 11:00 01/07/19 03:54 A/P-Cardiology Admission Diagnosis Palpitation Paroxysmal atrial flutter Hypertension Anxiety Assessment/Plan Palpitation, secondary to atrial flutter, better at this time Paroxysmal atrial flutter, Converted to sinus rhythm, I will switch propranolol to Toprol-XL 50 mg daily and monitor his tolerance and response. Reassured at this time, we'll consider ablation in the future. Will need a stress test as an outpatient [id number] score of 1, yearly risk of stroke without oral anticoagulation is 1.3 percent, I have started him on Xarelto at this point Borderline hyperlipidemia, working on exercise and weight loss, continue to monitor lipids EKG changes with ST elevation in V3 V4 V5, no reciprocal changes, no acute chest pain, cardiac enzymes were negative Hypertension, maintained on propranolol and Olmisartan/hydrochlorothiazide as an outpatient, I am switching propranolol to Toprol Anxiety/depression, maintained on bupropion, Celexa as at this time, reassured. 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 Continue with weight loss and exercise Patient is maintained on testosterone as an outpatient Family history of esophageal cancer Family history of heart disease Clinical Quality Measures DVT/VTE Risk/Contraindication: Risk Factor Score Per Nursin RFS Level Per Nursing on Admit: 1=Low/No VTE PPX NISA BAIRD MD Jan 07, 2019 09:39
--- NOTE | 2019-01-07 09:39 | Clinic Account Progress/Dx ---
Clinic Account Progress/Dx DIAGNOSIS: Date Seen by Provider: Jan 07, 2019 Time Seen by Provider: 09:39 Palpitation Paroxysmal atrial flutter Hypertension Anxiety NISA BAIRD MD Jan 07, 2019 09:39
[2019-01-07] MEDS ORDERED: RIVA20TA PO (09:41)
[2019-01-07] MEDS ORDERED: METO-352 PO (09:41)
== END 2019-01-07 10:25 | disposition home or self-care (01) | DRG 310 ==
LOC: EDUNIT# 10:45 → ER 10:47 → ICU 11:47
PROVIDERS: ADMIT Internal Medicine Cardiovascular Disease; ATTEND Family Medicine
DX: I48.92 Unspecified atrial flutter (principal); I10 Essential (primary) hypertension; F41.9 Anxiety disorder, unspecified; F32.9 Major depressive disorder, single episode, unspecified; K21.9 Gastro-esophageal reflux disease without esophagitis; G47.30 Sleep apnea, unspecified; E66.9 Obesity, unspecified; Z68.34 Body mass index [BMI] 34.0-34.9, adult
CPT/HCPCS: 36415; 71045; 80048; 80053; 80061; 80306; 81000; 82550; 82553; 83735; 83874; 83880; 84100; 84443; 84484; 85025; 85610; 85730; 87081; 93005; 93041; 93306; 96365; 96366; 96375

== ENCOUNTER → 2019-01-26 | Outpatient (CLI) | payer BC ==
[~2019-01-26] MED LIST: BUPR300T51 PO; BUSP10TA95 PO; KETO120S2 TOP; METO-352 PO; NALT50TA PO; OLME1TAB44 PO; PANT40TA3 PO; PROP40TA5 PO; RIVA20TA PO; TEST200V22 INJ
== END ==
LOC: CARD 15:33
PROVIDERS: ATTEND Nurse Practitioner Family
DX: R00.2 Palpitations (principal)
CPT/HCPCS: 93005

== ENCOUNTER → 2019-01-30 | Outpatient (CLI) | payer BC ==
[~2019-01-30] VITALS: Ht 182.9 cm; Wt 112.5 kg
[~2019-01-30] MED LIST changes: +CATHETER FLUSH 10 ML SYR IV PRN
[2019-01-30 08:42] VITALS: BP 145/89
[2019-01-30 08:55] VITALS: BP 159/84
[2019-01-30 09:05] VITALS: BP 194/92
[2019-01-30 09:06] VITALS: BP 168/90
[2019-01-30 09:09] VITALS: BP 159/92
--- NOTE | 2019-01-30 14:30 | STRESS TEST ---
DATE OF SERVICE: 01/30/2019 EXERCISE MYOVIEW STRESS TEST REPORT REFERRING PHYSICIAN: Dr. Corrales. Baseline heart rate is 77, baseline blood pressure 143/87. Baseline EKG is sinus rhythm with mild ST elevation in V2, V3 and V4. In summary, the patient was injected with 10.25 mCi of technetium-99 Myoview and the resting images were obtained. Then, the patient started exercising with a baseline heart rate, blood pressure and EKG mentioned above. During exercise, the patient's EKG showed improvement of that ST elevation, became more normal with mild upsloping ST depression in V2, V3 and V4. With peak blood pressure of 194/92. During recovery, heart rate and blood pressure returned to baseline. EKG returned to baseline. The resting and stress images were reviewed and compared in the short axis, horizontal long axis, and vertical long axis views. Review of the images showed diaphragmatic attenuation with mild decreased uptake at the basal to mid inferior wall with subtle reversibility. SSS is 2, SDS 2, TID value 0.96. On the gated images, the left ventricle appeared to be normal size with normal contractility. Calculated ejection fraction 56%. CONCLUSION: 1. The patient was able to exercise for 9 minutes on standard Jostin protocol, total of 10.5 METS achieving 87% of maximum expected heart rate. 2. Baseline EKG abnormality with early repolarization with nondiagnostic EKG changes with exercise returned to baseline during recovery. 3. Mild hypertensive response to exercise with peak blood pressure 194/92 returned to baseline during recovery. 4. Diaphragmatic attenuation with no significant ischemia or infarction on SPECT images. 5. Normal left ventricular size with normal contractility. Calculated ejection fraction 56%. Job ID: [id number] DocumentID: [id number] Dictated Date: 01/30/2019 11:26:58 Parts Coordinator Date: 01/30/2019 14:29:13 Dictated By: NISA BAIRD MD
== END ==
LOC: CARD 07:02
PROVIDERS: ATTEND Internal Medicine Cardiovascular Disease
DX: I48.92 Unspecified atrial flutter (principal); I10 Essential (primary) hypertension; I51.7 Cardiomegaly
CPT/HCPCS: 78452; 93017

== ENCOUNTER 2019-03-29 17:25 | Emergency (ER) | payer BC ==
[~2019-03-29] VITALS: Ht 182.9 cm; Wt 110.9 kg
[~2019-03-29 17:25] MED LIST changes: -CATHETER FLUSH 10 ML SYR IV PRN
[2019-03-29] MEDS ORDERED: LACTATED RINGERS 1,000 ML IV ONE (17:44)
--- NOTE | 2019-03-29 17:44 | ED Cardiac General ---
History of Present Illness General Chief Complaint: Cardiac/General Problems Stated Complaint: AFIB Source: patient Exam Limitations: no limitations History of Present Illness Date Seen by Provider: Mar 29, 2019 Time Seen by Provider: 17:30 Initial Comments Patient presents to ER by private conveyance with chief complaint of palpitations and rapid heart rate. 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 He has a history of paroxysmal atrial fibrillation/A flutter known to Dr. Edmonds. He is on Xarelto and 50 mg metoprolol succinate. He has not missed any doses. He is not having any chest pain but he does feel a little short of breath. He does not feel near syncopal. He has no history of coronary disease but he does have hypertension treated with metoprolol. He does not smoke have hyperlipidemia hypothyroidism or diabetes. He denies any use of caffeine. He denies any recent illness, cough, fever, chills, sore throat, nausea, vomiting, dysuria. Allergies and Home Medications Allergies Coded Allergies: No Known Drug Allergies (Unverified , 11/20/14) Home Medications Bupropion HCl 300 Mg Tab.er.24h, 300 MG PO DAILY, (Reported) Buspirone HCl 10 Mg Tablet, 10 MG PO TID, (Reported) Ketoconazole 120 Ml Shampoo, TOP DAILY, (Reported) Metoprolol Succinate 50 Mg Tab.er.24h, 50 MG PO DAILY Prescribed by: NISA EDMONDS on 01/07/19940 Naltrexone HCl 50 Mg Tablet, 25 MG PO DAILY, (Reported) TAKES 1/2 (50MG) TABLET Pantoprazole Sodium 40 Mg Tablet.dr, 40 MG PO DAILY, (Reported) Rivaroxaban 20 Mg Tablet, 20 MG PO DAILY Prescribed by: NISA EDMONDS on 01/07/19940 Testosterone Enanthate 200 Mg/1 Ml Vial, 200 MG INJ EVERY 12 DAYS, (Reported) Patient Home Medication List Home Medication List Reviewed: Yes Review of Systems Review of Systems Constitutional: No chills, No diaphoresis EENTM: No Blurred Vision, No Double Vision Respiratory: Denies Cough, Denies Orthopnea Cardiovascular: Denies Chest Pain, Denies Edema; Irregular Heart Rate, Lightheadedness, Palpitations; Denies Syncope Gastrointestinal: Denies Abdomen Distended, Denies Abdominal Pain, Denies Constipated, Denies Diarrhea, Denies Nausea Genitourinary: Denies Burning, Denies Discharge Past Ialefio-Fmmqwh-Hozmzi Hx Patient Social History Alcohol Use: Denies Use Recreational Drug Use: No Smoking Status: Never a Smoker Recent Foreign Travel: No Contact w/Someone Who Travel: No Recent Hopitalizations: No Seasonal Allergies Seasonal Allergies: No Past Medical History Surgeries: No Respiratory: No Cardiac: Yes Hypertension Neurological: No Genitourinary: No Gastrointestinal: No Musculoskeletal: Yes (CLOSED REDUCTION OF RIGHT SHOULDER DISLOCATION) Endocrine: No HEENT: No Cancer: No Psychosocial: No Integumentary: No Family Medical History Cancer of mouth 19 FATHER Diabetes mellitus 19 FATHER 19 MOTHER Hypercholesterolemia 19 FATHER 19 MOTHER Hypertension 19 FATHER 19 MOTHER Respiratory disorder 19 FATHER Physical Exam Vital Signs Vital Signs - First Documented 03/29/19 17:25 Temp 36.8 Pulse 118 Resp 20 B/P (MAP) 146/99 (115) Pulse Ox 100 O2 Delivery Room Air Capillary Refill : Height, Weight, BMI Height: 6'0.00" Weight: 248lbs. 0.0oz. 112.445423ie; 33.6 BMI Method:Stated General Appearance: WD/WN, Anxious, Mild Distress HEENT: PERRL/EOMI, Pharynx Normal, Moist Mucous Membranes Neck: Full Range of Motion, Normal Inspection Respiratory: Lungs Clear, Normal Breath Sounds, No Accessory Muscle Use, No Respiratory Distress Cardiovascular: No Edema, Normal Peripheral Pulses, Irregularly Irregular, Tachycardia (100-140) Gastrointestinal: Normal Bowel Sounds, Non Tender, Soft Progress/Results/Core Measures Results/Orders Lab Results Laboratory Tests Test 03/29/19 17:35 Range/Units White Blood Count 7.2 4.3-11.0 10^3/uL Red Blood Count 5.18 4.35-5.85 10^6/uL Hemoglobin 16.6 13.3-17.7 G/DL Hematocrit 49 40-54 % Mean Corpuscular Volume 94 80-99 FL Mean Corpuscular Hemoglobin 32 25-34 PG Mean Corpuscular Hemoglobin Concent 34 32-36 G/DL Red Cell Distribution Width 12.6 10.0-14.5 % Platelet Count 312 130-400 10^3/uL Mean Platelet Volume 9.2 7.4-10.4 FL Neutrophils (%) (Auto) 58 42-75 % Lymphocytes (%) (Auto) 33 12-44 % Monocytes (%) (Auto) 8 0-12 % Eosinophils (%) (Auto) 1 0-10 % Basophils (%) (Auto) 0 0-10 % Neutrophils # (Auto) 4.2 1.8-7.8 X 10^3 Lymphocytes # (Auto) 2.4 1.0-4.0 X 10^3 Monocytes # (Auto) 0.6 0.0-1.0 X 10^3 Eosinophils # (Auto) 0.1 0.0-0.3 10^3/uL Basophils # (Auto) 0.0 0.0-0.1 10^3/uL Sodium Level 140 135-145 MMOL/L Potassium Level 3.6 3.6-5.0 MMOL/L Chloride Level 104 98-107 MMOL/L Carbon Dioxide Level 27 21-32 MMOL/L Anion Gap 9 5-14 MMOL/L Blood Urea Nitrogen 9 7-18 MG/DL Creatinine 1.34 H 0.60-1.30 MG/DL Estimat Glomerular Filtration Rate 59 BUN/Creatinine Ratio 7 Glucose Level 104 70-105 MG/DL Calcium Level 9.4 8.5-10.1 MG/DL Corrected Calcium 8.5-10.1 MG/DL Total Bilirubin 0.7 0.1-1.0 MG/DL Aspartate Amino Transf (AST/SGOT) 25 5-34 U/L Alanine Aminotransferase (ALT/SGPT) 31 0-55 U/L Alkaline Phosphatase 72 40-136 U/L Troponin I < 0.028 <0.028 NG/ML Total Protein 7.6 6.4-8.2 GM/DL Albumin 4.8 H 3.2-4.5 GM/DL My Orders Orders - LINDA BEDOYA Troponin I (03/29/19 17:38) Chest 1 View, Ap/Pa Only (03/29/19 17:38) Ekg Tracing (03/29/19 17:38) Ed Iv/Invasive Line Start (03/29/19 17:38) Monitor-Rhythm Ecg Trace Only (03/29/19 17:38) Cbc With Automated Diff (03/29/19 17:38) Comprehensive Metabolic Panel (03/29/19 17:38) Metoprolol Tartrate Injection (Lopressor (03/29/19 17:45) Ed Iv/Invasive Line Start (03/29/19 17:44) Lactated Ringers (Lr 1000 Ml Iv Solution (03/29/19 17:44) Medications Given in ED Current Medications Medications Dose Ordered Sig/Vince Route Start Time Stop Time Status Last Admin Dose Admin Lactated Ringer's 1,000 ml @ 0 mls/hr Q0M ONCE IV 03/29/19 17:44 03/29/19 17:47 DC 03/29/19 18:03 0 MLS/HR Metoprolol Tartrate 5 mg ONCE ONCE IV 03/29/19 17:45 03/29/19 17:46 DC 03/29/19 18:03 5 MG Vital Signs/I&O 03/29/19 17:25 Temp 36.8 Pulse 118 Resp 20 B/P (MAP) 146/99 (115) Pulse Ox 100 O2 Delivery Room Air Progress Progress Note : Time: 17:43 Progress Note He is going in and out of a sinus rhythm. Plan to give him a liter fluids and 5 metoprolol. Check labs including troponin. EKG chest x-ray. The monitor shows in going from around 100 110 sinus tachycardia up to 1:30 5//40 irregular atrial fib/flutter with rapid ventricular response. Initial ECG Impression Date: Mar 29, 2019 Initial ECG Impression Time: 17:26 Initial ECG Rate: 102 Initial ECG Rhythm: S.Tach Initial ECG Intervals: Normal Initial ECG Impression: Normal, Nonspecific Changes Comment Sinus tachycardia with no ST elevation or depression. Diagnostic Imaging Diagonstic Imaging: Xray Plain Films/CT/US/NM/MRI: chest (1v) Comments No acute cardiopulmonary process on one view chest x-ray. NAME: NIRMALA LIVE [facility] REC#: [id number] PT STATUS: REG ER : 11/21/1943 PHYSICIAN: LINDA BEDOYA MD ADMIT DATE: 03/29/19/ER Signed Date of Exam:03/29/19 CHEST 1 VIEW, AP/PA ONLY Indication: Weakness and increasing falls Portable chest 4:05 PM Heart size and pulmonary vascularity are normal. Lungs are clear. There are no effusions or pneumothoraces. IMPRESSION: Negative chest Dictated by: Dictated on workstation # [id number] Dict: 03/29/19 1623 Trans: 03/29/194 [id number] Interpreted by: DEVORAH RIVAS MD Electronically signed by: DEVORAH RIVAS MD 03/29/19 162 Reviewed: Reviewed by Me Consults : Consulting Physician: NISA EDMONDS MD Consults Notes Discussed case lab chest x-ray EKG and clinical history with Dr. Edmonds. He agrees with the plan and will see the patient outpatient. Heart rate is now on the 80s with normal otherwise vital signs. Suggested the patient that if it happens again just take a extra metoprolol. Departure Impression Primary Impression: Paroxysmal atrial fibrillation with rapid ventricular response Disposition: HOME, SELF-CARE Condition: Improved Departure-Patient Inst. Decision time for Depature: 18:40 Referrals: NISA EDMONDS MD, JACQUELINE S DO (PCP/Family) Primary Care Physician Patient Instructions: Atrial Fibrillation (DC) Add. Discharge Instructions: Drink plenty fluids and avoid caffeine. Continue taking your medications as prescribed. If this happens again take one extra tablet of metoprolol 50 mg succinate. If this resolves it within an hour and you're not having any chest pain or shortness of breath when you're okay to follow up outpatient. If you begin to have chest pain or cannot catch your breath then please return to the nearest ER. Please call Dr. Edmonds's clinic tomorrow morning and request follow-up appointment. All discharge instructions reviewed with patient and/or family. Voiced understanding. Work/School Note: Work Release Form Date Seen in the Emergency Department: Mar 29, 2019 Return to Work: Mar 30, 2019 Restrictions: No Restrictions LINDA BEDOYA Mar 29, 2019 17:44
[2019-03-29 17:45] LABS: BASOPHILS % (AUTO) 0 % (0-10); EOSINOPHILS # (AUTO) 0.1 10^3/uL (0.0-0.3); EOSINOPHILS % (AUTO) 1 % (0-10); HEMATOCRIT 49 % (40-54); HEMOGLOBIN 16.6 G/DL (13.3-17.7); LYMPHOCYTES # (AUTO) 2.4 X 10^3 (1.0-4.0); LYMPHOCYTES % (AUTO) 33 % (12-44); MEAN CORPUSCULAR HEMOGLOBIN 32 PG (25-34); MEAN CORPUSCULAR HGB CONC 34 G/DL (32-36); MEAN CORPUSCULAR VOLUME 94 FL (80-99); MEAN PLATELET VOLUME 9.2 FL (7.4-10.4); MONOCYTES # (AUTO) 0.6 X 10^3 (0.0-1.0); MONOCYTES % (AUTO) 8 % (0-12); NEUTROPHILS # (AUTO) 4.2 X 10^3 (1.8-7.8); NEUTROPHILS % (AUTO) 58 % (42-75); PLATELET COUNT 312 10^3/uL (130-400); RED CELL DISTRIBUTION WIDTH 12.6 % (10.0-14.5); WHITE BLOOD COUNT 7.2 10^3/uL (4.3-11.0)
[2019-03-29] MEDS ORDERED: meTOprolol 5 MG/5 ML (LOPRESSOR) VIAL IV ONE (17:45)
[2019-03-29 18:05] LABS: ALANINE AMINOTRANSFERASE 31 U/L (0-55); ALBUMIN 4.8 GM/DL (3.2-4.5); ALKALINE PHOSPHATASE 72 U/L (40-136); BILIRUBIN,TOTAL 0.7 MG/DL (0.1-1.0); BUN/CREATININE RATIO 7; CALCIUM 9.4 MG/DL (8.5-10.1); CARBON DIOXIDE 27 MMOL/L (21-32); CHLORIDE 104 MMOL/L (98-107); CREATININE SERUM 1.34 MG/DL (0.60-1.30); GFR ESTIMATED 59; GLUCOSE 104 MG/DL (70-105); POTASSIUM 3.6 MMOL/L (3.6-5.0); SODIUM 140 MMOL/L (135-145); TOTAL PROTEIN 7.6 GM/DL (6.4-8.2)
--- NOTE | 2019-03-29 18:19 | Diagnostic Imaging Report ---
CLINICAL INDICATION: Patient with abnormal heartbeat. EXAM: Portable chest x-ray upright view. COMPARISON: Chest x-ray dated 01/06/2019. FINDINGS: Lungs/pleura: Lungs are clear. There is no pneumothorax. There is no pleural effusion. Mediastinum: Unremarkable. Pulmonary vasculature: Unremarkable. Heart: Unremarkable. Bones/extrathoracic soft tissue: Unremarkable. IMPRESSION: There is no radiographic evidence of acute cardiopulmonary process. Dictated by: Dictated on workstation # [id number]
[2019-03-29 18:56] VITALS: BP 143/89
== END 2019-03-29 18:56 | disposition home or self-care (01) ==
LOC: EDUNIT# 17:25 → ER 17:26
DX: I48.0 Paroxysmal atrial fibrillation (principal); I10 Essential (primary) hypertension; Z79.01 Long term (current) use of anticoagulants; Z82.49 Family history of ischemic heart disease and other diseases of the circulatory system; Z80.8 Family history of malignant neoplasm of other organs or systems
CPT/HCPCS: 36415; 71045; 80053; 84484; 85025; 93005; 93041; 96361; 96374

== ENCOUNTER → 2022-04-07 | Outpatient (CLI) | payer BC ==
[~2022-04-07] MED LIST changes: -BUPR300T51 PO; +BUPR300T98 PO; +KETO120S13 TOP; -KETO120S2 TOP; +OLME-11 PO; -OLME1TAB44 PO; -PANT40TA3 PO; +PANT40TA52 PO
== END ==
LOC: CARD 14:42
PROVIDERS: ATTEND Physician Assistant
DX: I11.9 Hypertensive heart disease without heart failure (principal)
CPT/HCPCS: 93306